=== PATIENT | female | born 2000 | race Caucasian/White ===

== ENCOUNTER 2025-03-11 05:18 | Inpatient (IN) ==
--- NOTE | 2025-03-11 07:22 | History & Physical Report ---
Date of Service March 11, 2025 Assessment & Plan (1) Irregular uterine contractions: Plan: Evaluate the patient for labor History of Present Illness Chief Complaint: Intrauterine 37 weeks 5 days gestation Contractions Primary Care Provider: Camden Patterson PA-C Patient is a 24-year-old 1 para 0 well dated with a first trimester ultrasound her due date is 11/24/2024 is complicated by seizure disorder gestational diabetes positive strep on multiple medications. Scheduled for induction at [facility] [address] on 03/20/2025. Patient was brought in by ambulance. Patient states she was having contractions. Patient felt she was unable to drive to [place]. She does not complain of any bleeding. No leakage of fluid. Was admitted placed on the monitor she had reactive NST with good [id number] variability and some spontaneous accelerations. She does not complain of any bleeding or leakage of fluid. Allergies Allergy/AdvReac Type Severity Reaction Status Date / Time Penicillins Allergy Intermediate Hives Verified 10/12/24 23:31 Home Medications Medication Instructions Recorded Confirmed Type escitalopram oxalate 20 mg tablet 20 mg PO DAILY 01/03/25 03/11/25 History (Lexapro) famotidine 20 mg tablet (Pepcid) 20 mg PO BID 01/03/25 03/11/25 History folic acid 1 mg tablet 1 mg PO DAILY 01/03/25 03/11/25 History lamotrigine 100 mg tablet 300 mg PO HS 01/03/25 03/11/25 History (Lamictal) lamotrigine 150 mg tablet 150 mg PO DAILY 01/03/25 03/11/25 History (Lamictal) pantoprazole 20 mg tablet,delayed 20 mg PO BID 01/03/25 03/11/25 History release (Protonix) vits no.124-ferrous fum 1 tab PO DAILY 01/03/25 03/11/25 History 27 mg iron-folic acid 800 mcg tablet ( Vitamin) albuterol sulfate 90 mcg/actuation 1 inh inhalation QID PRN Shortness 01/26/25 03/11/25 History aerosol inhaler (Ventolin HFA) Of Breath amitriptyline 10 mg tablet 10 mg PO HS 01/26/25 03/11/25 History aspirin 81 mg capsule 81 mg PO DAILY 01/26/25 03/11/25 History clotrimazole 1 % topical ointment 1 applic topical BID 01/26/25 03/11/25 History (Alevazol) doxylamine succinate 25 mg tablet 25 mg PO HS PRN Nausea And Vomiting 01/26/25 03/11/25 History (Unisom (doxylamine)) epinephrine 0.15 mg/0.3 mL 0.15 mg IM Q15M PRN Anaphylaxis 01/26/25 03/11/25 History injection,auto-injector fexofenadine 180 mg tablet 180 mg PO DAILY 01/26/25 03/11/25 History fluticasone propionate 115 2 puff inhalation BID 01/26/25 03/11/25 History mcg-salmeterol 21 mcg/actuation HFA inhaler (Advair HFA) magnesium oxide 400 mg PO DAILY 01/26/25 03/11/25 History ondansetron 4 mg disintegrating 4 mg PO Q8H PRN Nausea And Vomiting 01/26/25 03/11/25 History tablet pyridoxine (vitamin B6) 25 mg 25 mg PO HS PRN Nausea And Vomiting 01/26/25 03/11/25 History tablet (Vitamin B-6) docusate sodium 100 mg capsule 100 mg PO DAILY 02/25/25 03/11/25 History (Colace) Past Med/Surg History Problem List (Updated 03/11/25 @ 05:25 by Arline Stockton RN) Irregular uterine contractions No leakage of amniotic fluid into vagina Vaginal discharge during in third trimester Dehydration during Uterine contractions during Depression Asthma Anxiety HTN (hypertension), benign GERD (gastroesophageal reflux disease) Medical History (Updated 03/11/25 @ 05:25 by Arline Stockton RN) Gestational diabetes mellitus (GDM) diet controlled Bipolar 2 disorder Seizure states last had seizure on 03/08/25. follows neurology and takes lamictal. states was diagnosed with seizure disorder in 2019. states seizures are stress induced. Migraines Surgical History S/P cholecystectomy [place] teeth extracted Family History Grandmother (Maternal) Hypertension Heart disease High cholesterol Allergies Grandfather (Maternal) Heart disease Hypertension High cholesterol Allergies Grandmother (Paternal) High cholesterol Hypertension Heart disease Allergies Grandfather (Paternal) Hypertension Heart disease Allergies High cholesterol Social History (Updated 03/11/25 @ 05:27 by Arline Stockton RN) Smoking Status: Never smoker Second Hand Exposure: No; Do You Dip or Chew Tobacco: No; Hx Alcohol Use: No Hx Substance Use: No Preferred Language: Tajik Communication Ability: Effective Pipelaying Fitter Required: No Beliefs That Will Affect Care: Orthodox Orthodox Beliefs: Yarsanism marital status: marital status details: Gianni Lechuga (26) Current Living Situation: Spouse Current Living Situation Comment: , brother, brother in law, dogs current occupational status: unemployed Feels Safe at Home: Yes Safety Concerns: Feels Safe At This Time Diet: regular Assistive Devices: Glasses Physical Exam Physical Exam: Patient appeared to be well-developed well-nourished 24-year-old white female alert oriented x 3 and intermittent periods of distress due to contractions. Heart had a regular rhythm S1 and S2 were normal. Lungs are clear to auscultation percussion. Trachea was midline there is no cervical adenopathy abdomen was nontender. Contractions were palpable about every 5 to 6 minutes abdominal size was consistent with a term size fetus. There was no calf tenderness. Pelvic exam revealed a vertex presentation cervix was posterior 90% effaced soft 1.5 cm dilated. Membranes were intact. Results & Data Results & Data Vital Signs (Past 12 Hours) Vital Signs Temp Pulse BP 03/11/25 05:43 78 128/81 03/11/25 05:37 36.8 C Diagnostic Findings Reactive NST
[2025-03-11] MEDS ORDERED: VANCOMYCIN CONSULT ACTIVE PRN (08:50)
[2025-03-11] MEDS ORDERED: CALCIUM CARBONATE 500 MG CHEWABLE TAB PO PRN (08:50)
[2025-03-11] MEDS ORDERED: LIDOCAINE 1% LOCAL 20 ML VIAL INFIL PRN (08:50)
[2025-03-11] MEDS ORDERED: OXYTOCIN 30 UNITS/NSS 30 UNITS/500 ML BAG IV PRN (08:50)
[2025-03-11] MEDS ORDERED: PYRIDOXINE HCL 50 MG TAB PO PRN (08:52)
[2025-03-11] MEDS ORDERED: ONDANSETRON 4 MG OD TAB PO PRN (08:52)
[2025-03-11] MEDS ORDERED: ALBUTEROL HFA 8 GM INHALER INH PRN (08:52)
--- NOTE | 2025-03-11 08:53 | Obstetrical Progress Note ---
Date of Service March 11, 2025 Subjective Patient seen and examined. She is a 24-year-old G1, P0 at 37 and 5 weeks who came to labor ended with ambulance for painful contractions which started around 1 AM. Her cervix was 1 cm, 50%, -1 by nursing team and then Dr. Boss was called and and his exam was with more effacement about 80%. He thought she was in early labor and signed out to me. When I came to the room patient is on her side screaming crying with each contractions they are coming every 3 to 4 minutes. She denies leakage of fluid or vaginal bleeding. She reports good movements. She desires epidural for pain. Originally she was scheduled for induction of labor at 39 weeks at [facility] [place] because of history of seizure disorder but patient desires to stay here since she is very painful and desires epidural for pain. Her seizures are usually absence seizure's she states for about a minute and then recovers without any issues. She has been on Lamictal and dose has been increased by neurology. She has gestational diabetes, diet control, US done by [facility] on 02/24: Patient presented at 35w 2d for growth assessment. Normal growth with EFW 2699 g at 55%ile. Normal MADELYN at 13.7 cm. Cephalic presentation. Problems: 1. History of seizure disorder, on Lamictal, last seizure was in December of this year, does not lose her consciousness, 2. Obesity during , 3. GBS positive, Allergic to penicillin 4. GDM A1, diet-controlled, 5. Depression, on Lexapro and stable, I checked her cervix she is 2 cm now, 80%, tight bulging bag head is at -1 station. She is getting IV fluid bolus and labs plan to admit her, monitor, vancomycin for GBS and allergic to penicillin, recheck her cervix after she gets some rest, All questions were answered. Results & Data Vital Signs (Past 12 Hours) Vital Signs Temp Pulse Resp BP 03/11/25 07:59 81 125/75 03/11/25 07:29 86 140/94 03/11/25 07:16 22 03/11/25 07:16 37.0 C 03/11/25 05:43 78 128/81 03/11/25 05:37 36.8 C
[2025-03-11] MEDS ORDERED: EPINEPHrine INJ 1 MG/ML AMP IM PRN (09:00)
[2025-03-11] MEDS: LACTATED RINGER'S 1,000 ML IV PRN (09:00)
--- NOTE | 2025-03-11 09:16 | Anesthesiology Consultation ---
Date of Service March 11, 2025 Assessment & Plan ASA ASA2 Proposed Anesthesia Anesthesia Type: Labor Epidural Risk / Benefits Reviewed With: PT / POA / Parent / Guardian, Accepts Plan and Informed Consent Obtained History Height/Weight Height: 4 ft 10 in Weight: 85.275 kg Allergies Allergy/AdvReac Type Severity Reaction Status Date / Time Penicillins Allergy Intermediate Hives Verified 03/11/25 11:48 Medications Home Medications Medication Instructions Recorded Confirmed Last Taken escitalopram oxalate 20 mg tablet 20 mg PO DAILY 01/03/25 03/11/25 03/10/25 (Lexapro) famotidine 20 mg tablet (Pepcid) 20 mg PO BID 01/03/25 03/11/25 03/10/25 folic acid 1 mg tablet 1 mg PO DAILY 01/03/25 03/11/25 03/10/25 lamotrigine 100 mg tablet 300 mg PO HS 01/03/25 03/11/25 03/10/25 (Lamictal) lamotrigine 150 mg tablet 150 mg PO DAILY 01/03/25 03/11/25 03/10/25 (Lamictal) pantoprazole 20 mg tablet,delayed 20 mg PO BID 01/03/25 03/11/25 03/10/25 release (Protonix) vits no.124-ferrous fum 1 tab PO DAILY 01/03/25 03/11/25 03/10/25 27 mg iron-folic acid 800 mcg tablet ( Vitamin) albuterol sulfate 90 mcg/actuation 1 inh inhalation QID PRN Shortness 01/26/25 03/11/25 Unknown aerosol inhaler (Ventolin HFA) Of Breath amitriptyline 10 mg tablet 10 mg PO HS 01/26/25 03/11/25 03/10/25 aspirin 81 mg capsule 81 mg PO DAILY 01/26/25 03/11/25 03/10/25 clotrimazole 1 % topical ointment 1 applic topical BID 01/26/25 03/11/25 01/26/25 (Alevazol) doxylamine succinate 25 mg tablet 25 mg PO HS PRN Nausea And Vomiting 01/26/25 03/11/25 03/10/25 (Unisom (doxylamine)) epinephrine 0.15 mg/0.3 mL 0.15 mg IM Q15M PRN Anaphylaxis 01/26/25 03/11/25 Unknown injection,auto-injector fexofenadine 180 mg tablet 180 mg PO DAILY 01/26/25 03/11/25 03/10/25 fluticasone propionate 115 2 puff inhalation BID 01/26/25 03/11/25 01/19/25 mcg-salmeterol 21 mcg/actuation HFA inhaler (Advair HFA) magnesium oxide 400 mg PO DAILY 01/26/25 03/11/25 03/10/25 ondansetron 4 mg disintegrating 4 mg PO Q8H PRN Nausea And Vomiting 01/26/25 03/11/25 03/10/25 tablet pyridoxine (vitamin B6) 25 mg 25 mg PO HS PRN Nausea And Vomiting 01/26/25 03/11/25 03/10/25 tablet (Vitamin B-6) docusate sodium 100 mg capsule 100 mg PO DAILY 02/25/25 03/11/25 02/25/25 (Colace) Active Medications Generic Name Dose Route Start Last Admin Trade Name Kwasi PRN Reason Stop Dose Admin Docusate Sodium 100 mg 03/11/25 09:00 03/11/25 10:06 Docusate Sodium 100 Mg Cap PO 04/10/25 08:59 Not Given DAILY SCOOTER Escitalopram Oxalate 20 mg 03/11/25 09:00 03/11/25 10:53 Escitalopram Oxalate 20 Mg Tab PO 04/10/25 08:59 20 mg DAILY SCOOTER Administration Famotidine 20 mg 03/11/25 09:00 03/11/25 10:28 Famotidine 20 Mg Tab PO 04/10/25 08:59 20 mg BID SCOOTER Administration Fexofenadine HCl 180 mg 03/11/25 09:00 03/11/25 10:52 Fexofenadine Hcl 180 Mg Tab PO 04/10/25 08:59 180 mg DAILY SCOOTER Administration Fluticasone/Vilanterol 1 puffs 03/11/25 09:00 03/11/25 10:23 Fluticasone/Vilanterol 100/25mcg 14 Puffs/Inhaler INH 04/10/25 08:59 Not Given DAILY SCOOTER Folic Acid 1 mg 03/11/25 09:00 03/11/25 10:24 Folic Acid 1 Mg Tab PO 04/10/25 08:59 Not Given DAILY SCOOTER Vancomycin HCl 1,000 mg in 270 mls @ 200 mls/hr 03/11/25 09:30 03/11/25 10:01 Vancomycin Hcl / Nss IV 03/21/25 09:29 200 mls/hr Q12H PRN Administration GBS(+) Until Delivery Lactated Ringer's 1,000 mls @ 150 mls/hr 03/11/25 08:50 03/11/25 10:00 Lr IV 03/13/25 08:49 150 mls/hr .Q6H40M PRN Administration L&D Protocol Protocol Oxytocin 30 units in 500 mls @ 2 mls/hr 03/11/25 12:54 03/11/25 13:30 Pitocin 30 Units/Nss IV 03/13/25 12:53 0.12 units/hr .Q24H PRN 2 mls/hr Labor Induction/Augmentation Administration Protocol 0.12 UNITS/HR Lamotrigine 150 mg 03/11/25 10:30 03/11/25 10:28 Lamotrigine 100 Mg Tab PO 04/10/25 10:29 150 mg DAILY SCOOTER Administration Pantoprazole Sodium 20 mg 03/11/25 09:00 03/11/25 10:51 Pantoprazole 40 Mg Tab PO 04/10/25 08:59 20 mg BID SCOOTER Administration Prenat Multivit/[place]/Iron/Folic Ac 1 tab 03/11/25 09:00 03/11/25 10:24 Vitamin 1 Tab PO 04/10/25 08:59 Not Given DAILY SCOOTER Past Medical History Medical History Gestational diabetes mellitus (GDM) diet controlled Bipolar 2 disorder Seizure states last had seizure on 03/08/25. follows neurology and takes lamictal. states was diagnosed with seizure disorder in 2019. states seizures are stress induced. Migraines Exercise / Class Metabolic Activity II 4-5 Yardwork/Stairs/Walk up hill Past Family History Family History Grandmother (Maternal) Hypertension Heart disease High cholesterol Allergies Grandfather (Maternal) Heart disease Hypertension High cholesterol Allergies Grandmother (Paternal) High cholesterol Hypertension Heart disease Allergies Grandfather (Paternal) Hypertension Heart disease Allergies High cholesterol Past Surgical History Surgical History S/P cholecystectomy [place] teeth extracted Past Anesthesia History No Hx of Anesthesia Complications and No Family Hx of Anesthesia Complications History of PONV No Hx of PONV and No Hx of Motion Sickness Social History Smoking Status: Never smoker Do You Dip or Chew Tobacco: No Hx Alcohol Use: No Hx Substance Use: No substance use type: does not use Review of Systems denies fever/cough/ colds/ chest pain/ SOB/ FARIDA denies FARIDA Physical Exam Vital Signs Last Vital Signs Temp 36.9 C 03/11/25 11:00 Pulse 95 H 03/11/25 13:38 Resp 18 03/11/25 13:30 BP 131/80 03/11/25 13:28 Pulse Ox 100 03/11/25 13:38 ENMT Mouth: no TMJ abnormality and no dentition abnormality Thyromental Distance: > or= 3.5 Finger Breadths Mallampati Class: II Neck neck extension not limited Respiratory normal respiratory effort; no respiratory distress Auscultation: lungs clear to auscultation bilaterally Cardiovascular Rate/Rhythm: regular rate and regular rhythm Neurologic moves all extremities Psychiatric Orientation: alert and oriented x 3 Testing Laboratory Results 03/11/25 08:58 Blood Type AB Positive 03/11/25 08:58 Antibody Screen NEGATIVE 03/11/25 08:58 03/11/25 12:58 POC Glucose 124 H
[2025-03-11 09:18] LABS: Hematocrit (blood only) 32.1 % (37.0-47.0); Hemoglobin 11.5 g/dl (12.0-16.0); Mean Corpuscular Hemoglobin 32.6 pg (25.0-34.0); Mean Corpuscular Volume 90.9 fL (80.0-100.0); Platelet Count 173 K/uL (130-400); RDW Standard Deviation 46.5 fL (36.4-46.3); Red Blood Count 3.53 M/uL (4.20-5.40); White Blood Count 10.40 K/ul (4.8-10.8)
[2025-03-11] MEDS ORDERED: BUPIVACAINE 0.25% PF 30 ML VIAL EPI PRN (09:23)
[2025-03-11] MEDS ORDERED: NALBUPHINE HCL INJ 10 MG/ML AMP IV PRN (09:23)
[2025-03-11] MEDS ORDERED: diphenhydrAMINE 50 MG/ML VIAL IV PRN (09:23)
[2025-03-11] MEDS ORDERED: ROPIVACAINE 0.5% PF 5 MG/ML 20 ML VIAL EPI PRN (09:23)
[2025-03-11] MEDS ORDERED: PROMETHAZINE 6.25 MG/50.25 ML BAG IV PRN (09:23)
[2025-03-11] MEDS ORDERED: SODIUM CHLORIDE 0.9% PF INJ 10 ML VIAL EPI PRN (09:23)
[2025-03-11] MEDS ORDERED: LIDOCAINE 2% MPF LOCAL 5 ML VIAL EPI PRN (09:23)
[2025-03-11] MEDS ORDERED: NALOXONE HCL 1 MG in SODIUM CHLORIDE 0.9% 1,000 ML IV PRN (09:23)
[2025-03-11] MEDS ORDERED: NALOXONE HCL 0.4 MG/1 ML VIAL/CARP IV PRN (09:23)
[2025-03-11] MEDS: fentANYL 2 MCG/ML BUPIVacaine 0.125%-NSS 100ML BAG ONE ×2 (09:57→18:40)
[2025-03-11] MEDS: LIDOCAINE 2%/EPINEPHRINE 1:200,000 20 ML PF ONE ×2 (09:59→17:36)
[2025-03-11] MEDS: BUPIVACAINE 0.25% PF 30 ML VIAL ONE ×2 (09:59→17:36)
[2025-03-11] MEDS: VANCOMYCIN HCL / NSS 1,000 MG/270 ML BAG IV PRN (10:01)
[2025-03-11] MEDS: DOCUSATE SODIUM 100 MG CAP PO SCH (10:06)
[2025-03-11] MEDS ORDERED: Nursing to Pharmacy Communication SCH (10:15)
[2025-03-11] MEDS: FLUTICASONE/VILANTEROL 100/25MCG 14 PUFFS/INHALER INH SCH (10:23)
[2025-03-11] MEDS: PRENATAL VITAMIN 1 TAB PO SCH (10:24)
[2025-03-11] MEDS: FOLIC ACID 1 MG TAB PO SCH (10:24)
[2025-03-11] MEDS: lamoTRIgine 100 MG TAB PO SCH (10:28)
[2025-03-11] MEDS: FAMOTIDINE 20 MG TAB PO SCH (10:28)
[2025-03-11] MEDS: FEXOFENADINE HCL 180 MG TAB PO SCH (10:52)
[2025-03-11] MEDS: ESCITALOPRAM OXALATE 20 MG TAB PO SCH (10:53)
[2025-03-11] MEDS: LIDOCAINE 2%/EPINEPHRINE 1:200,000 20 ML PF EPI STA (12:40)
[2025-03-11] MEDS: SODIUM CHLORIDE 0.9% PF INJ 10 ML VIAL ONE ×2 (12:40→18:40)
[2025-03-11] MEDS: BUPIVACAINE 0.25% PF 30 ML VIAL EPI STA (12:40)
[2025-03-11] MEDS: SODIUM CHLORIDE 0.9% PF INJ 10 ML VIAL EPI STA (12:40)
--- NOTE | 2025-03-11 13:12 | Obstetrical Progress Note ---
Date of Service March 11, 2025 Assessment & Plan Admission and Anticipated Discharge Date Admission Date: March 11, 2025 Subjective Patient is reevaluated. She feels much better minimal pain. Received epidural and which is working very well. Vital signs stable afebrile, heart rate category 1, First dose of vancomycin was given, Cervix is 4 cm dilated, 90% effaced, large bulging bag, around abundant clear fluid was obtained, Contractions spaced out, Continue to monitor closely and augment with oxytocin per protocol. Results & Data Vital Signs (Past 12 Hours) Vital Signs Temp Pulse Resp BP Pulse Ox 03/11/25 13:08 101 H 100 03/11/25 13:03 86 99 03/11/25 12:59 90 99/72 L 03/11/25 12:58 88 94 03/11/25 12:55 95 H 90 03/11/25 12:53 94 H 100 03/11/25 12:48 84 100 03/11/25 12:44 85 92 03/11/25 12:43 100 03/11/25 12:43 86 03/11/25 12:43 84 134/77 03/11/25 12:38 89 100 03/11/25 12:33 93 H 100 03/11/25 12:29 83 130/71 03/11/25 12:28 84 100 03/11/25 12:23 92 H 100 03/11/25 12:21 90 94 03/11/25 12:18 76 100 03/11/25 12:13 82 115/74 100 03/11/25 12:08 79 100 03/11/25 12:03 90 95 03/11/25 12:00 83 149/67 H 03/11/25 11:58 81 100 03/11/25 11:53 90 98 03/11/25 11:48 86 100 03/11/25 11:45 75 113/65 03/11/25 11:43 90 100 03/11/25 11:38 83 99 03/11/25 11:33 83 100 03/11/25 11:29 77 109/73 03/11/25 11:28 80 100 03/11/25 11:23 80 100 03/11/25 11:19 89 94 03/11/25 11:18 85 97 03/11/25 11:15 82 119/86 03/11/25 11:13 92 H 88 L 03/11/25 11:08 80 100 03/11/25 11:03 91 H 100 03/11/25 11:00 20 03/11/25 11:00 36.9 C 20 03/11/25 10:58 76 100 03/11/25 10:57 100 H 138/61 03/11/25 10:53 104 H 100 03/11/25 10:52 85 116/67 03/11/25 10:48 90 98 03/11/25 10:47 86 118/68 03/11/25 10:43 90 100 03/11/25 10:42 101 H 116/73 03/11/25 10:39 88 115/71 03/11/25 10:38 84 100 03/11/25 10:33 99 H 100 03/11/25 10:32 93 H 135/75 03/11/25 10:31 104 H 91 03/11/25 10:30 18 03/11/25 10:30 18 03/11/25 10:28 90 100 03/11/25 10:26 82 132/77 03/11/25 10:24 97 H 139/78 03/11/25 10:23 95 H 100 03/11/25 10:22 95 H 135/76 03/11/25 10:20 100 H 131/75 03/11/25 10:18 100 03/11/25 10:18 94 H 03/11/25 10:18 93 H 130/74 03/11/25 10:16 100 H 125/74 03/11/25 10:14 103 H 121/74 03/11/25 10:13 95 H 100 03/11/25 10:12 102 H 129/76 03/11/25 10:11 94 H 127/78 03/11/25 10:08 95 H 119/57 L 100 03/11/25 10:06 88 121/59 L 03/11/25 10:04 94 H 124/72 03/11/25 10:03 95 H 99 03/11/25 10:02 93 H 123/68 03/11/25 10:00 103 H 20 138/86 03/11/25 09:58 86 126/76 99 03/11/25 09:56 85 127/69 03/11/25 09:54 88 125/74 03/11/25 09:53 86 99 03/11/25 09:52 81 136/84 03/11/25 09:50 86 137/83 03/11/25 09:48 94 H 99 03/11/25 09:43 90 99 03/11/25 09:38 79 97 03/11/25 09:33 100 H 100 03/11/25 09:28 96 H 99 03/11/25 09:00 18 03/11/25 09:00 18 03/11/25 07:59 81 125/75 03/11/25 07:29 86 140/94 03/11/25 07:16 22 03/11/25 07:16 37.0 C 22 03/11/25 05:43 78 128/81 03/11/25 05:37 36.8 C
[2025-03-11] MEDS: OXYTOCIN 30 UNITS/NSS 30 UNITS/500 ML BAG IV PRN (13:30)
[2025-03-11] MEDS: fentANYL 2 MCG/ML BUPIVacaine 0.125%-NSS 100ML BAG EPI PRN (16:21)
--- NOTE | 2025-03-11 17:16 | Obstetrical Progress Note ---
Date of Service March 11, 2025 Assessment & Plan Admission and Anticipated Discharge Date Admission Date: March 11, 2025 Subjective Patient feels pressure and getting more painful. She pushed pain button but has not helped. Vital signs stable afebrile, heart rate category 1, Cervix is 45 cm, 80%, head is -120 station with contraction, IUPC is placed to adjust the dose of Pitocin with better, Continue monitor closely, Will contact anesthesiology for pain control Results & Data Vital Signs (Past 12 Hours) Vital Signs Temp Pulse Resp BP Pulse Ox 03/11/25 17:13 99 H 100 03/11/25 17:10 103 H 94 03/11/25 17:08 102 H 100 03/11/25 17:03 94 H 100 03/11/25 16:58 100 03/11/25 16:58 95 H 03/11/25 16:58 89 149/93 H 03/11/25 16:53 91 H 100 03/11/25 16:48 96 H 100 03/11/25 16:43 100 03/11/25 16:43 94 H 03/11/25 16:43 101 H 136/92 03/11/25 16:42 97 H 91 03/11/25 16:38 90 100 03/11/25 16:33 89 100 03/11/25 16:29 95 H 139/89 03/11/25 16:28 93 H 100 03/11/25 16:23 94 H 99 03/11/25 16:18 90 100 03/11/25 16:14 96 H 135/82 03/11/25 16:13 94 H 100 03/11/25 16:11 91 H 92 03/11/25 16:08 91 H 100 03/11/25 16:03 91 H 99 03/11/25 15:58 88 100 03/11/25 15:57 86 136/82 03/11/25 15:53 91 H 100 03/11/25 15:48 89 100 03/11/25 15:44 85 131/81 03/11/25 15:43 80 100 03/11/25 15:38 81 100 03/11/25 15:33 83 99 03/11/25 15:30 16 03/11/25 15:30 16 03/11/25 15:29 96 H 139/93 03/11/25 15:28 94 H 100 03/11/25 15:26 89 91 03/11/25 15:23 82 100 03/11/25 15:18 85 100 03/11/25 15:15 81 131/62 03/11/25 15:13 83 100 03/11/25 15:10 36.8 C 03/11/25 15:08 81 100 03/11/25 15:03 85 100 03/11/25 15:00 18 03/11/25 15:00 36.8 C 18 03/11/25 14:58 83 134/73 100 03/11/25 14:53 84 100 03/11/25 14:52 84 93 03/11/25 14:48 86 100 03/11/25 14:44 86 130/65 03/11/25 14:43 91 H 100 03/11/25 14:38 87 98 03/11/25 14:33 85 100 03/11/25 14:31 89 91 03/11/25 14:30 16 03/11/25 14:30 16 03/11/25 14:28 84 132/66 100 03/11/25 14:23 81 100 03/11/25 14:18 84 94 03/11/25 14:13 100 03/11/25 14:13 75 03/11/25 14:13 76 132/72 03/11/25 14:08 102 H 90 03/11/25 14:03 92 H 100 03/11/25 14:00 16 03/11/25 14:00 16 03/11/25 13:58 100 03/11/25 13:58 88 03/11/25 13:58 89 139/86 03/11/25 13:53 95 H 99 03/11/25 13:48 88 100 03/11/25 13:43 92 H 146/88 H 100 03/11/25 13:38 95 H 100 03/11/25 13:33 92 H 100 03/11/25 13:30 18 03/11/25 13:30 18 03/11/25 13:28 100 03/11/25 13:28 92 H 03/11/25 13:28 85 131/80 03/11/25 13:26 81 90 03/11/25 13:23 96 H 100 03/11/25 13:18 89 100 03/11/25 13:14 93 H 140/84 03/11/25 13:13 100 H 100 03/11/25 13:10 98 H 93 03/11/25 13:08 101 H 100 03/11/25 13:03 86 99 03/11/25 13:00 18 03/11/25 13:00 18 03/11/25 12:59 90 99/72 L 03/11/25 12:58 88 94 03/11/25 12:55 95 H 90 03/11/25 12:53 94 H 100 03/11/25 12:48 84 100 03/11/25 12:44 85 92 03/11/25 12:43 100 03/11/25 12:43 86 03/11/25 12:43 84 134/77 03/11/25 12:38 89 100 03/11/25 12:33 93 H 100 03/11/25 12:30 16 03/11/25 12:30 16 03/11/25 12:29 83 130/71 03/11/25 12:28 84 100 03/11/25 12:23 92 H 100 03/11/25 12:21 90 94 03/11/25 12:18 76 100 03/11/25 12:13 82 115/74 100 03/11/25 12:08 79 100 03/11/25 12:03 90 95 03/11/25 12:00 83 20 149/67 H 03/11/25 11:58 81 100 03/11/25 11:53 90 98 03/11/25 11:48 86 100 03/11/25 11:45 75 113/65 03/11/25 11:43 90 100 03/11/25 11:38 83 99 03/11/25 11:33 83 100 03/11/25 11:30 18 03/11/25 11:30 18 03/11/25 11:29 77 109/73 03/11/25 11:28 80 100 03/11/25 11:23 80 100 03/11/25 11:19 89 94 03/11/25 11:18 85 97 03/11/25 11:15 82 119/86 03/11/25 11:13 92 H 88 L 03/11/25 11:08 80 100 03/11/25 11:03 91 H 100 03/11/25 11:00 20 03/11/25 11:00 36.9 C 20 03/11/25 10:58 76 100 03/11/25 10:57 100 H 138/61 03/11/25 10:53 104 H 100 03/11/25 10:52 85 116/67 03/11/25 10:48 90 98 03/11/25 10:47 86 118/68 03/11/25 10:43 90 100 03/11/25 10:42 101 H 116/73 03/11/25 10:39 88 115/71 03/11/25 10:38 84 100 03/11/25 10:33 99 H 100 03/11/25 10:32 93 H 135/75 03/11/25 10:31 104 H 91 03/11/25 10:30 18 03/11/25 10:30 18 03/11/25 10:28 90 100 03/11/25 10:26 82 132/77 03/11/25 10:24 97 H 139/78 03/11/25 10:23 95 H 100 03/11/25 10:22 95 H 135/76 03/11/25 10:20 100 H 131/75 03/11/25 10:18 100 03/11/25 10:18 94 H 03/11/25 10:18 93 H 130/74 03/11/25 10:16 100 H 125/74 03/11/25 10:14 103 H 121/74 03/11/25 10:13 95 H 100 03/11/25 10:12 102 H 129/76 03/11/25 10:11 94 H 127/78 03/11/25 10:08 95 H 119/57 L 100 03/11/25 10:06 88 121/59 L 03/11/25 10:04 94 H 124/72 03/11/25 10:03 95 H 99 03/11/25 10:02 93 H 123/68 03/11/25 10:00 103 H 20 138/86 03/11/25 09:58 86 126/76 99 03/11/25 09:56 85 127/69 03/11/25 09:54 88 125/74 03/11/25 09:53 86 99 03/11/25 09:52 81 136/84 03/11/25 09:50 86 137/83 03/11/25 09:48 94 H 99 03/11/25 09:43 90 99 03/11/25 09:38 79 97 03/11/25 09:33 100 H 100 03/11/25 09:28 96 H 99 03/11/25 09:00 18 03/11/25 09:00 18 03/11/25 07:59 81 125/75 03/11/25 07:29 86 140/94 03/11/25 07:16 22 03/11/25 07:16 37.0 C 22 03/11/25 05:43 78 128/81 03/11/25 05:37 36.8 C
--- NOTE | 2025-03-11 18:12 | Anesthesia Procedure Note ---
Date of Service March 11, 2025 Anesthesia Epidural Re-Dose Vital Signs Temp Pulse Resp BP Pulse Ox 36.8 C 94 H 16 143/87 H 100 03/11/25 15:10 03/11/25 18:03 03/11/25 15:30 03/11/25 17:58 03/11/25 18:03 Notes Pain Intensity: 10 Dilatation (cm): 4.5 Effacement (%): 80 After Epidural Re-Dose Mental Status: alert / awake / arousable Pain: see Notes below Airway Patency, RR, SpO2: stable & adequate BP & HR: stable & adequate Additional Notes: asked to reevaluate the patient. patient has numbness but is reporting break through pain in vaginal and back area. I am concerned that she is remote from delivery with ineffective pain control. I decided to replace the epidural. previous one was removed and the interspace above was numbed with 1% lido. I then advanced a touey needle to MIN with air at 5 cm. Easy catheter thread. no blood aspirated. 1% lido with epi 4cc test dose. negative IV. catheter secured and patient bolused with 100 mcg of fentanyl and 3cc of .25% bupivicaine. pt vaginal pain is gone and back pain has improved.
--- NOTE | 2025-03-11 18:58 | Obstetrical Progress Note ---
Date of Service March 11, 2025 Assessment & Plan Admission and Anticipated Discharge Date Admission Date: March 11, 2025 Subjective BP's elevated Low UOP No BECERRA/ Change in vision/N&V Epidural was replaced, now comfortable and wants to sleep VE: 4-5 cm/ 0 station, slightly lower but no change in dilatation Bed side US OP, Bladder empty Plan to start PO labetalol, labs, adjust the dose of Oxytocin Continue to monitor closely Results & Data Vital Signs (Past 12 Hours) Vital Signs Temp Pulse Resp BP Pulse Ox 03/11/25 18:53 89 100 03/11/25 18:48 96 H 100 03/11/25 18:43 100 03/11/25 18:43 92 H 03/11/25 18:43 91 H 144/91 H 03/11/25 18:38 94 H 100 03/11/25 18:34 96 H 150/95 H 03/11/25 18:33 97 H 100 03/11/25 18:28 88 154/97 H 100 03/11/25 18:24 87 148/96 H 03/11/25 18:23 93 H 100 03/11/25 18:18 88 100 03/11/25 18:16 89 146/98 H 03/11/25 18:14 93 H 142/101 H 03/11/25 18:13 87 100 03/11/25 18:08 91 H 100 03/11/25 18:03 94 H 100 03/11/25 17:58 91 H 143/87 H 100 03/11/25 17:53 88 100 03/11/25 17:48 94 H 100 03/11/25 17:43 100 03/11/25 17:43 85 03/11/25 17:43 81 137/84 03/11/25 17:38 100 03/11/25 17:38 90 03/11/25 17:38 90 139/84 03/11/25 17:35 94 H 147/91 H 03/11/25 17:33 93 H 100 03/11/25 17:32 91 H 144/91 H 03/11/25 17:30 97 H 153/102 H 03/11/25 17:29 107 H 140/92 03/11/25 17:28 106 H 100 03/11/25 17:23 104 H 100 03/11/25 17:18 104 H 96 03/11/25 17:15 99 H 138/99 03/11/25 17:13 99 H 100 03/11/25 17:10 103 H 94 03/11/25 17:08 102 H 100 03/11/25 17:03 94 H 100 03/11/25 16:58 100 03/11/25 16:58 95 H 03/11/25 16:58 89 149/93 H 03/11/25 16:53 91 H 100 03/11/25 16:48 96 H 100 03/11/25 16:43 100 03/11/25 16:43 94 H 03/11/25 16:43 101 H 136/92 03/11/25 16:42 97 H 91 03/11/25 16:38 90 100 03/11/25 16:33 89 100 03/11/25 16:29 95 H 139/89 03/11/25 16:28 93 H 100 03/11/25 16:23 94 H 99 03/11/25 16:18 90 100 03/11/25 16:14 96 H 135/82 03/11/25 16:13 94 H 100 03/11/25 16:11 91 H 92 03/11/25 16:08 91 H 100 03/11/25 16:03 91 H 99 03/11/25 16:00 18 03/11/25 16:00 18 03/11/25 15:58 88 100 03/11/25 15:57 86 136/82 03/11/25 15:53 91 H 100 03/11/25 15:48 89 100 03/11/25 15:44 85 131/81 03/11/25 15:43 80 100 03/11/25 15:38 81 100 03/11/25 15:33 83 99 03/11/25 15:30 16 03/11/25 15:30 16 03/11/25 15:29 96 H 139/93 03/11/25 15:28 94 H 100 03/11/25 15:26 89 91 03/11/25 15:23 82 100 03/11/25 15:18 85 100 03/11/25 15:15 81 131/62 03/11/25 15:13 83 100 03/11/25 15:10 36.8 C 03/11/25 15:08 81 100 03/11/25 15:03 85 100 03/11/25 15:00 18 03/11/25 15:00 36.8 C 18 03/11/25 14:58 83 134/73 100 03/11/25 14:53 84 100 03/11/25 14:52 84 93 03/11/25 14:48 86 100 03/11/25 14:44 86 130/65 03/11/25 14:43 91 H 100 03/11/25 14:38 87 98 03/11/25 14:33 85 100 03/11/25 14:31 89 91 03/11/25 14:30 16 03/11/25 14:30 16 03/11/25 14:28 84 132/66 100 03/11/25 14:23 81 100 03/11/25 14:18 84 94 03/11/25 14:13 100 03/11/25 14:13 75 03/11/25 14:13 76 132/72 03/11/25 14:08 102 H 90 03/11/25 14:03 92 H 100 03/11/25 14:00 16 03/11/25 14:00 16 03/11/25 13:58 100 03/11/25 13:58 88 03/11/25 13:58 89 139/86 03/11/25 13:53 95 H 99 03/11/25 13:48 88 100 03/11/25 13:43 92 H 146/88 H 100 03/11/25 13:38 95 H 100 03/11/25 13:33 92 H 100 03/11/25 13:30 18 03/11/25 13:30 18 03/11/25 13:28 100 03/11/25 13:28 92 H 03/11/25 13:28 85 131/80 03/11/25 13:26 81 90 03/11/25 13:23 96 H 100 03/11/25 13:18 89 100 03/11/25 13:14 93 H 140/84 03/11/25 13:13 100 H 100 03/11/25 13:10 98 H 93 03/11/25 13:08 101 H 100 03/11/25 13:03 86 99 03/11/25 13:00 18 03/11/25 13:00 18 03/11/25 12:59 90 99/72 L 03/11/25 12:58 88 94 03/11/25 12:55 95 H 90 03/11/25 12:53 94 H 100 03/11/25 12:48 84 100 03/11/25 12:44 85 92 03/11/25 12:43 100 03/11/25 12:43 86 03/11/25 12:43 84 134/77 03/11/25 12:38 89 100 03/11/25 12:33 93 H 100 03/11/25 12:30 16 03/11/25 12:30 16 03/11/25 12:29 83 130/71 03/11/25 12:28 84 100 03/11/25 12:23 92 H 100 03/11/25 12:21 90 94 03/11/25 12:18 76 100 03/11/25 12:13 82 115/74 100 03/11/25 12:08 79 100 03/11/25 12:03 90 95 03/11/25 12:00 83 20 149/67 H 03/11/25 11:58 81 100 03/11/25 11:53 90 98 03/11/25 11:48 86 100 03/11/25 11:45 75 113/65 03/11/25 11:43 90 100 03/11/25 11:38 83 99 03/11/25 11:33 83 100 03/11/25 11:30 18 03/11/25 11:30 18 03/11/25 11:29 77 109/73 03/11/25 11:28 80 100 03/11/25 11:23 80 100 03/11/25 11:19 89 94 03/11/25 11:18 85 97 03/11/25 11:15 82 119/86 03/11/25 11:13 92 H 88 L 03/11/25 11:08 80 100 03/11/25 11:03 91 H 100 03/11/25 11:00 20 03/11/25 11:00 36.9 C 20 03/11/25 10:58 76 100 03/11/25 10:57 100 H 138/61 03/11/25 10:53 104 H 100 03/11/25 10:52 85 116/67 03/11/25 10:48 90 98 03/11/25 10:47 86 118/68 03/11/25 10:43 90 100 03/11/25 10:42 101 H 116/73 03/11/25 10:39 88 115/71 03/11/25 10:38 84 100 03/11/25 10:33 99 H 100 03/11/25 10:32 93 H 135/75 03/11/25 10:31 104 H 91 03/11/25 10:30 18 03/11/25 10:30 18 03/11/25 10:28 90 100 03/11/25 10:26 82 132/77 03/11/25 10:24 97 H 139/78 03/11/25 10:23 95 H 100 03/11/25 10:22 95 H 135/76 03/11/25 10:20 100 H 131/75 03/11/25 10:18 100 03/11/25 10:18 94 H 03/11/25 10:18 93 H 130/74 03/11/25 10:16 100 H 125/74 03/11/25 10:14 103 H 121/74 03/11/25 10:13 95 H 100 03/11/25 10:12 102 H 129/76 03/11/25 10:11 94 H 127/78 03/11/25 10:08 95 H 119/57 L 100 03/11/25 10:06 88 121/59 L 03/11/25 10:04 94 H 124/72 03/11/25 10:03 95 H 99 03/11/25 10:02 93 H 123/68 03/11/25 10:00 103 H 20 138/86 03/11/25 09:58 86 126/76 99 03/11/25 09:56 85 127/69 03/11/25 09:54 88 125/74 03/11/25 09:53 86 99 03/11/25 09:52 81 136/84 03/11/25 09:50 86 137/83 03/11/25 09:48 94 H 99 03/11/25 09:43 90 99 03/11/25 09:38 79 97 03/11/25 09:33 100 H 100 03/11/25 09:28 96 H 99 03/11/25 09:00 18 03/11/25 09:00 18 03/11/25 07:59 81 125/75 03/11/25 07:29 86 140/94 03/11/25 07:16 22 03/11/25 07:16 37.0 C 22
[2025-03-11] MEDS: LABETALOL HCL 100 MG TAB PO ONE (19:27)
[2025-03-11 19:39] LABS: Hematocrit (blood only) 32.7 % (37.0-47.0); Hemoglobin 11.6 g/dl (12.0-16.0); Immature Granulocytes # (auto) 0.07 K/uL (0.01-0.20); Immature Granulocytes % (auto) 0.6 %; Mean Corpuscular Hemoglobin 33.0 pg (25.0-34.0); Mean Corpuscular Volume 92.9 fL (80.0-100.0); Platelet Count 167 K/uL (130-400); RDW Standard Deviation 48.0 fL (36.4-46.3); Red Blood Count 3.52 M/uL (4.20-5.40); White Blood Count 12.66 K/ul (4.8-10.8)
[2025-03-11 19:59] LABS: Alanine Aminotransferase 12.0 U/L (7-52); Albumin Globulin Ratio 1.1 (0.9-2); Alkaline Phosphatase 158.0 U/L (34-104); Anion Gap 11.0 (3-11); Bilirubin,Total 0.4 mg/dl (0.2-1.0); Blood Urea Nitrogen 14.0 mg/dl (6-23); Calcium 8.5 mg/dl (8.6-10.3); Carbon Dioxide 20.0 mmol/L (21-32); Chloride 105.0 mmol/L (98-107); Creatinine Clr Calc Pharmacy 86.2 ml/min; Globulin 3.0 gm/dl (2.5-4.0); Glucose 74.0 mg/dl (70-99(Fasting)); Potassium 4.0 mmol/L (3.5-5.1); Sodium 136.0 mmol/L (136-145); Total Protein 6.4 gm/dl (6.0-8.3)
--- NOTE | 2025-03-11 21:23 | Obstetrical Progress Note ---
Date of Service March 11, 2025 Assessment & Plan Admission and Anticipated Discharge Date Admission Date: March 11, 2025 Subjective Patient is reevaluated. She still has pain and pressure unable to sleep. Blood pressures stable, no severe range readings labs normal except slightly increased creatinine, unable to send urine for PC ratio due to no urine for 2 hours now started to have small amount of dark bloody urine. Cervix is unchanged, is 4.-5 cm, 80% effaced, head is still 0 station called, still direct OP. heart rate 140s with decreased variability for the last half an hour or so, brief variable decells with quick recovery, scalp stimulation with 10 bpm increased but does not meet criteria for acceleration, Pitocin has been at 20 milliunits/min, Discussed the findings, arrest of dilatation active phase of labor, heart rate category 2, oligoanuria, recommended primary delivery patient agrees with plan, understand risks and benefits of . Patient understands C section is a major surgery, with risks including but not limited to bleeding , infection, injury to surrounding organs like bowels, bladder, ureters, adhesions, scarring, wound infection, blood cloths in legs/ lungs, longer recovery. All questions were answered. She signed an informed consent. Results & Data Vital Signs (Past 12 Hours) Vital Signs Temp Pulse Resp BP Pulse Ox 03/11/25 21:14 100 03/11/25 21:14 96 H 03/11/25 21:14 96 H 139/69 03/11/25 21:09 103 H 100 03/11/25 21:04 108 H 100 03/11/25 20:59 97 H 100 03/11/25 20:58 103 H 148/82 H 03/11/25 20:54 91 H 100 03/11/25 20:49 94 H 100 03/11/25 20:44 99 03/11/25 20:44 93 H 03/11/25 20:44 92 H 94 03/11/25 20:43 90 145/86 H 03/11/25 20:39 101 H 97 03/11/25 20:38 97 H 148/86 H 03/11/25 20:34 109 H 100 03/11/25 20:33 109 H 168/77 H 86 L 03/11/25 20:29 103 H 161/100 H 100 03/11/25 20:24 104 H 100 03/11/25 20:19 98 H 100 03/11/25 20:14 100 H 100 03/11/25 20:13 100 H 144/93 H 03/11/25 20:09 96 H 100 03/11/25 20:04 95 H 100 03/11/25 20:00 36.7 C 03/11/25 19:59 101 H 100 03/11/25 19:58 96 H 143/97 H 03/11/25 19:54 99 03/11/25 19:54 93 H 03/11/25 19:54 93 H 94 03/11/25 19:49 100 03/11/25 19:49 87 03/11/25 19:49 91 H 90 03/11/25 19:44 93 H 135/87 100 03/11/25 19:39 89 100 03/11/25 19:34 94 H 100 03/11/25 19:29 93 H 100 03/11/25 19:24 92 H 100 03/11/25 19:21 88 134/79 03/11/25 19:19 88 94 03/11/25 19:18 89 89 L 03/11/25 19:13 92 H 100 03/11/25 19:08 88 100 03/11/25 19:03 86 100 03/11/25 18:58 93 H 123/79 100 03/11/25 18:53 89 100 03/11/25 18:48 96 H 100 03/11/25 18:43 100 03/11/25 18:43 92 H 03/11/25 18:43 91 H 144/91 H 03/11/25 18:38 94 H 100 03/11/25 18:34 96 H 150/95 H 03/11/25 18:33 97 H 100 03/11/25 18:30 20 03/11/25 18:30 20 03/11/25 18:28 88 154/97 H 100 03/11/25 18:24 87 148/96 H 03/11/25 18:23 93 H 100 03/11/25 18:18 88 100 03/11/25 18:16 89 146/98 H 03/11/25 18:14 93 H 142/101 H 03/11/25 18:13 87 100 03/11/25 18:08 91 H 100 03/11/25 18:03 94 H 100 03/11/25 18:00 20 03/11/25 18:00 20 03/11/25 17:58 91 H 143/87 H 100 03/11/25 17:53 88 100 03/11/25 17:48 94 H 100 03/11/25 17:43 100 03/11/25 17:43 85 03/11/25 17:43 81 137/84 03/11/25 17:38 100 03/11/25 17:38 90 03/11/25 17:38 90 139/84 03/11/25 17:35 94 H 147/91 H 03/11/25 17:33 93 H 100 03/11/25 17:32 91 H 144/91 H 03/11/25 17:30 97 H 153/102 H 03/11/25 17:29 107 H 140/92 03/11/25 17:28 106 H 100 03/11/25 17:23 104 H 100 03/11/25 17:18 104 H 96 03/11/25 17:15 99 H 138/99 03/11/25 17:13 99 H 100 03/11/25 17:10 103 H 94 03/11/25 17:08 102 H 100 03/11/25 17:03 94 H 100 03/11/25 17:01 03/11/25 17:01 36.9 C 22 03/11/25 16:58 100 03/11/25 16:58 95 H 03/11/25 16:58 89 149/93 H 03/11/25 16:53 91 H 100 03/11/25 16:48 96 H 100 03/11/25 16:43 100 03/11/25 16:43 94 H 03/11/25 16:43 101 H 136/92 03/11/25 16:42 97 H 91 03/11/25 16:38 90 100 03/11/25 16:33 89 100 03/11/25 16:30 18 03/11/25 16:30 18 03/11/25 16:29 95 H 139/89 03/11/25 16:28 93 H 100 03/11/25 16:23 94 H 99 03/11/25 16:18 90 100 03/11/25 16:14 96 H 135/82 03/11/25 16:13 94 H 100 03/11/25 16:11 91 H 92 03/11/25 16:08 91 H 100 03/11/25 16:03 91 H 99 03/11/25 16:00 18 03/11/25 16:00 18 03/11/25 15:58 88 100 03/11/25 15:57 86 136/82 03/11/25 15:53 91 H 100 03/11/25 15:48 89 100 03/11/25 15:44 85 131/81 03/11/25 15:43 80 100 03/11/25 15:38 81 100 03/11/25 15:33 83 99 03/11/25 15:30 16 03/11/25 15:30 16 03/11/25 15:29 96 H 139/93 03/11/25 15:28 94 H 100 03/11/25 15:26 89 91 03/11/25 15:23 82 100 03/11/25 15:18 85 100 03/11/25 15:15 81 131/62 03/11/25 15:13 83 100 03/11/25 15:10 36.8 C 03/11/25 15:08 81 100 03/11/25 15:03 85 100 03/11/25 15:00 18 03/11/25 15:00 36.8 C 18 03/11/25 14:58 83 134/73 100 03/11/25 14:53 84 100 03/11/25 14:52 84 93 03/11/25 14:48 86 100 03/11/25 14:44 86 130/65 03/11/25 14:43 91 H 100 03/11/25 14:38 87 98 03/11/25 14:33 85 100 03/11/25 14:31 89 91 03/11/25 14:30 16 03/11/25 14:30 16 03/11/25 14:28 84 132/66 100 03/11/25 14:23 81 100 03/11/25 14:18 84 94 03/11/25 14:13 100 03/11/25 14:13 75 03/11/25 14:13 76 132/72 03/11/25 14:08 102 H 90 03/11/25 14:03 92 H 100 03/11/25 14:00 16 03/11/25 14:00 16 03/11/25 13:58 100 03/11/25 13:58 88 03/11/25 13:58 89 139/86 03/11/25 13:53 95 H 99 03/11/25 13:48 88 100 03/11/25 13:43 92 H 146/88 H 100 03/11/25 13:38 95 H 100 03/11/25 13:33 92 H 100 03/11/25 13:30 18 03/11/25 13:30 18 03/11/25 13:28 100 03/11/25 13:28 92 H 03/11/25 13:28 85 131/80 03/11/25 13:26 81 90 03/11/25 13:23 96 H 100 03/11/25 13:18 89 100 03/11/25 13:14 93 H 140/84 03/11/25 13:13 100 H 100 03/11/25 13:10 98 H 93 03/11/25 13:08 101 H 100 03/11/25 13:03 86 99 03/11/25 13:00 18 03/11/25 13:00 18 03/11/25 12:59 90 99/72 L 03/11/25 12:58 88 94 03/11/25 12:55 95 H 90 03/11/25 12:53 94 H 100 03/11/25 12:48 84 100 03/11/25 12:44 85 92 03/11/25 12:43 100 03/11/25 12:43 86 03/11/25 12:43 84 134/77 03/11/25 12:38 89 100 03/11/25 12:33 93 H 100 03/11/25 12:30 16 03/11/25 12:30 16 03/11/25 12:29 83 130/71 03/11/25 12:28 84 100 03/11/25 12:23 92 H 100 03/11/25 12:21 90 94 03/11/25 12:18 76 100 03/11/25 12:13 82 115/74 100 03/11/25 12:08 79 100 03/11/25 12:03 90 95 03/11/25 12:00 83 20 149/67 H 03/11/25 11:58 81 100 03/11/25 11:53 90 98 03/11/25 11:48 86 100 03/11/25 11:45 75 113/65 03/11/25 11:43 90 100 03/11/25 11:38 83 99 03/11/25 11:33 83 100 03/11/25 11:30 18 03/11/25 11:30 18 03/11/25 11:29 77 109/73 03/11/25 11:28 80 100 03/11/25 11:23 80 100 03/11/25 11:19 89 94 03/11/25 11:18 85 97 03/11/25 11:15 82 119/86 03/11/25 11:13 92 H 88 L 03/11/25 11:08 80 100 03/11/25 11:03 91 H 100 03/11/25 11:00 20 03/11/25 11:00 36.9 C 20 03/11/25 10:58 76 100 03/11/25 10:57 100 H 138/61 03/11/25 10:53 104 H 100 03/11/25 10:52 85 116/67 03/11/25 10:48 90 98 03/11/25 10:47 86 118/68 03/11/25 10:43 90 100 03/11/25 10:42 101 H 116/73 03/11/25 10:39 88 115/71 03/11/25 10:38 84 100 03/11/25 10:33 99 H 100 03/11/25 10:32 93 H 135/75 03/11/25 10:31 104 H 91 03/11/25 10:30 18 03/11/25 10:30 18 03/11/25 10:28 90 100 03/11/25 10:26 82 132/77 03/11/25 10:24 97 H 139/78 03/11/25 10:23 95 H 100 03/11/25 10:22 95 H 135/76 03/11/25 10:20 100 H 131/75 03/11/25 10:18 100 03/11/25 10:18 94 H 03/11/25 10:18 93 H 130/74 03/11/25 10:16 100 H 125/74 03/11/25 10:14 103 H 121/74 03/11/25 10:13 95 H 100 03/11/25 10:12 102 H 129/76 03/11/25 10:11 94 H 127/78 03/11/25 10:08 95 H 119/57 L 100 03/11/25 10:06 88 121/59 L 03/11/25 10:04 94 H 124/72 03/11/25 10:03 95 H 99 03/11/25 10:02 93 H 123/68 03/11/25 10:00 103 H 20 138/86 03/11/25 09:58 86 126/76 99 03/11/25 09:56 85 127/69 03/11/25 09:54 88 125/74 03/11/25 09:53 86 99 03/11/25 09:52 81 136/84 03/11/25 09:50 86 137/83 03/11/25 09:48 94 H 99 03/11/25 09:43 90 99 03/11/25 09:38 79 97 03/11/25 09:33 100 H 100 03/11/25 09:28 96 H 99
[2025-03-11] MEDS: CITRIC ACID/SODIUM CITRATE 15 ML UDC PO ONE (21:28)
[2025-03-11] MEDS: ACETAMINOPHEN 500 MG TAB PO PRN (21:28)
[2025-03-11] MEDS: AZITHROMYCIN 500 MG/255 ML BAG IV ONE (21:29)
[2025-03-11] MEDS ORDERED: ONDANSETRON INJ 2 MG/ML 2 ML VIAL ONE (21:38)
[2025-03-11] MEDS ORDERED: DEXAMETHASONE SOD INJ 4 MG/ML VIAL ONE (21:38)
[2025-03-11] MEDS ORDERED: MoRPHine SULFATE PF 1 MG/ML 10 ML AMP/VIAL ONE (21:38)
[2025-03-11] MEDS ORDERED: LIDOCAINE 2%/EPINEPHRINE 1:200,000 20 ML PF ONE (21:38)
[2025-03-11] MEDS ORDERED: OXYTOCIN 10 UNITS/ML VIAL ONE (21:38)
[2025-03-11] MEDS ORDERED: PHENYLEPHRINE HCL 25 MG/250 ML NSS IV ONE (21:46)
[2025-03-11 22:55] LABS: Base Excess Cord Arterial Bld -6.1 mEq/L (-9-1.8); CO2 Cord Arterial Blood 56 mmHg (39.1-73.5); HCO3 Cord Arterial Blood 22 mmol/L (19.7-28.5); PO2 Cord Arterial Blood 28 mmHg (4.1-31.7); pH Cord Arterial Blood 7.21 (7.1-7.38)
--- NOTE | 2025-03-11 23:56 | Operative Report ---
Post Operative Report Pre & Post Diagnosis Operation Date: 03/11/25 21:20 Pre-Op Diagnosis: 1.) Arrest of Dilation 2.) OP position 3.) Category II FHT tracing Post-Op Diagnosis: Same as pre op I identified the patient and participated in the time-out.: Yes Procedure Operation Date: 03/11/25 21:20 Actual Procedures p Primary section for the of a live male child at 2221. - Quoc Calzada MD Surgeon Quoc Calzada MD Doughnut Glazier DUSTY Rodriguez Quantitative Blood Loss (QBL) 619 Findings Consistent with Post-Op Diagnosis Baby was a viable male infant delivered at 22:21 PM in cephalic, direct occiput position facing up, Apgars 5,7,9 at 1, 5, 10 minutes respectively. 3290 grams. Maternal findings, normal uterus, fallopian tubes and ovaries. Specimens Placenta, cord Drains Mullen catheter drained 50 mL of dark urine Anesthesia Type Labor Epidural Complications none Indications patient is a 24-year-old G1, P0 at 37 weeks and 5 days of gestation who presen ts to labor and delivery in labor with regular contractions and asked for epidural for pain in the morning. After epidural she progressed to 4, 80, -2 station with a bulging bag artificial rupture of membranes were done and then she was continued with oxytocin per protocol. Despite maximum of Pitocin and regular contractions cervix has not changed over hours and had stayed direct occipitoposterior position. heart rate was between category 1 and category 2. After discussion decision was made with primary delivery patient understood the risks and benefits and signed informed consent. Description of Procedure Patient was taken to operating room where a spinal anesthesia was given without difficulty. She was placed in dorsal supine position with a leftward tilt. She was prepared and draped in usual sterile fashion. A financial skin incision was made and carried through to the underlying layer of fascia with the Bovie. Fascia was incised in the midline and incision was extended laterally with the help of Pacheco scissors. Then the upper aspect of the fascial incision was grasped with 2 Rehana clamps elevated the underlying rectus muscles were dissected off sharply with Pacheco scissors. Same thing was done on the lower incision. Then the muscles were in the midline, peritoneum was identified grasped with 2 pickups and entered sharply with Metzenbaum scissors. Peritoneal incision was extended superior and inferiorly with good visualization of the bladder. The bladder blade was inserted. Vesicouterine peritoneum was identified, grasped with pickups and entered sharply with Metzenbaum scissors, bladder flap was created digitally and bladder blade was reinserted. Uterus was incised in transverse fashion, incision was extended laterally, membranes were ruptured and clear fluid was obtained. Baby's head was Noted to be facing up towards incision, direct occiput posterior, delivered without difficulty, followed by shoulders and body with minimal traction without difficulty. Mouth and nose were suctioned there was dried on the field he was vigorously crying and moving. The cord was clamped times and cut at 30 seconds and then the infant was handed off to the pediatric team. Then the placenta was delivered manually as intact and complete. Uterus was externalized and cleared of all clots and debris's. Uterine incision was repaired with 0 Vicryl in a running locked fashion, second umbricating layer was placed with the same suture in running locked fashion. Excellent hemostasis achieved. Cul-de-sac and the pelvis was irrigated with warm normal saline and suctioned. Incision was checked of anesthetic again. Uterus was returned to the abdomen, parietal peritoneum was reapproximated with 3-0 Vicryl in a running fashion and the muscles were reapproximated in the same suture in a running fashion. All of the fascia and rectus muscles were hemostatic. Rectus fascia was reapproximated with 0 Vicryl starting from both columns meeting in the midline. Subcuticular fat tissue was brought together with 2-0 Vicryl in a running fashion, skin was closed with staple. The mom and baby tolerated procedure well. Sponge needle instrument count was correct x3. she was given 2 g of cefazolin before surgery. No complications happened, I was present during whole procedure. My clothing sales assistant was needed for retraction, hemostasis and aid during delivery of I attest to the content of the Intraoperative Record and any orders documented therein. Any exceptions are noted below.
[2025-03-12] MEDS ORDERED: MAGNESIUM HYDROXIDE SUSP 30 ML UDC PO PRN
[2025-03-12] MEDS ORDERED: BENZOCAINE 20% SPRY 85 APPLN/85 GM CAN EXT PRN
[2025-03-12] MEDS ORDERED: CALCIUM CARBONATE 500 MG CHEWABLE TAB PO PRN
[2025-03-12] MEDS ORDERED: SENNA 8.6 MG TAB PO PRN
[2025-03-12] MEDS ORDERED: HYDROCORTISONE ACETATE 25 MG SUPP PR PRN
--- NOTE | 2025-03-12 00:08 | Anesthesiology Progress Note ---
Date of Service March 12, 2025 Anesthesia Post Procedure Vital Signs Vital Signs: Temp Pulse Resp BP Pulse Ox 03/12/25 00:04 104 H 98 03/12/25 00:03 105 H 133/76 03/11/25 23:59 104 H 98 03/11/25 23:54 112 H 98 03/11/25 23:49 100 03/11/25 23:49 104 H 03/11/25 23:49 97 H 122/58 L 03/11/25 23:46 95 H 114/62 03/11/25 23:44 96 H 99 03/11/25 23:43 93 H 114/56 L 03/11/25 23:40 98 H 109/60 03/11/25 23:39 98 H 98 03/11/25 23:37 102 H 109/59 L 03/11/25 23:34 99 H 105/58 L 98 03/11/25 23:30 36.9 C 16 03/11/25 23:29 98 H 99 03/11/25 23:25 96 H 114/59 L 03/11/25 23:24 99 H 98 03/11/25 21:49 117 H 98 03/11/25 21:44 117 H 142/88 H 98 03/11/25 21:39 117 H 97 03/11/25 21:34 108 H 100 03/11/25 21:29 110 H 100 03/11/25 21:24 102 H 99 03/11/25 21:19 98 H 100 03/11/25 21:14 100 03/11/25 21:14 96 H 03/11/25 21:14 96 H 139/69 03/11/25 21:09 103 H 100 03/11/25 21:04 108 H 100 03/11/25 20:59 97 H 100 03/11/25 20:58 103 H 148/82 H 03/11/25 20:54 91 H 100 03/11/25 20:49 94 H 100 03/11/25 20:44 99 03/11/25 20:44 93 H 03/11/25 20:44 92 H 94 03/11/25 20:43 90 145/86 H 03/11/25 20:39 101 H 97 03/11/25 20:38 97 H 148/86 H 03/11/25 20:34 109 H 100 03/11/25 20:33 109 H 168/77 H 86 L 03/11/25 20:29 103 H 161/100 H 100 03/11/25 20:24 104 H 100 03/11/25 20:19 98 H 100 03/11/25 20:14 100 H 100 03/11/25 20:13 100 H 144/93 H 03/11/25 20:09 96 H 100 03/11/25 20:04 95 H 100 03/11/25 20:00 36.7 C 03/11/25 19:59 101 H 100 03/11/25 19:58 96 H 143/97 H 03/11/25 19:54 99 03/11/25 19:54 93 H 03/11/25 19:54 93 H 94 03/11/25 19:49 100 03/11/25 19:49 87 03/11/25 19:49 91 H 90 03/11/25 19:44 93 H 135/87 100 03/11/25 19:39 89 100 03/11/25 19:34 94 H 100 03/11/25 19:29 93 H 100 03/11/25 19:24 92 H 100 03/11/25 19:21 88 134/79 03/11/25 19:19 88 94 03/11/25 19:18 89 89 L 03/11/25 19:13 92 H 100 03/11/25 19:08 88 100 03/11/25 19:03 86 100 03/11/25 18:58 93 H 123/79 100 03/11/25 18:53 89 100 03/11/25 18:48 96 H 100 03/11/25 18:43 100 03/11/25 18:43 92 H 03/11/25 18:43 91 H 144/91 H 03/11/25 18:38 94 H 100 03/11/25 18:34 96 H 150/95 H 03/11/25 18:33 97 H 100 03/11/25 18:30 20 03/11/25 18:30 20 03/11/25 18:28 88 154/97 H 100 03/11/25 18:24 87 148/96 H 03/11/25 18:23 93 H 100 03/11/25 18:18 88 100 03/11/25 18:16 89 146/98 H 03/11/25 18:14 93 H 142/101 H 03/11/25 18:13 87 100 03/11/25 18:08 91 H 100 03/11/25 18:03 94 H 100 03/11/25 18:00 20 03/11/25 18:00 20 03/11/25 17:58 91 H 143/87 H 100 03/11/25 17:53 88 100 03/11/25 17:48 94 H 100 03/11/25 17:43 100 03/11/25 17:43 85 03/11/25 17:43 81 137/84 03/11/25 17:38 100 03/11/25 17:38 90 03/11/25 17:38 90 139/84 03/11/25 17:35 94 H 147/91 H 03/11/25 17:33 93 H 100 03/11/25 17:32 91 H 144/91 H 03/11/25 17:30 97 H 153/102 H 03/11/25 17:29 107 H 140/92 03/11/25 17:28 106 H 100 03/11/25 17:23 104 H 100 03/11/25 17:18 104 H 96 03/11/25 17:15 99 H 138/99 03/11/25 17:13 99 H 100 03/11/25 17:10 103 H 94 03/11/25 17:08 102 H 100 03/11/25 17:03 94 H 100 03/11/25 17:01 03/11/25 17:01 36.9 C 22 03/11/25 16:58 100 03/11/25 16:58 95 H 03/11/25 16:58 89 149/93 H 03/11/25 16:53 91 H 100 03/11/25 16:48 96 H 100 03/11/25 16:43 100 03/11/25 16:43 94 H 03/11/25 16:43 101 H 136/92 03/11/25 16:42 97 H 91 03/11/25 16:38 90 100 03/11/25 16:33 89 100 03/11/25 16:30 18 03/11/25 16:30 18 03/11/25 16:29 95 H 139/89 03/11/25 16:28 93 H 100 03/11/25 16:23 94 H 99 03/11/25 16:18 90 100 03/11/25 16:14 96 H 135/82 03/11/25 16:13 94 H 100 03/11/25 16:11 91 H 92 03/11/25 16:08 91 H 100 03/11/25 16:03 91 H 99 03/11/25 16:00 18 03/11/25 16:00 18 03/11/25 15:58 88 100 03/11/25 15:57 86 136/82 03/11/25 15:53 91 H 100 03/11/25 15:48 89 100 03/11/25 15:44 85 131/81 03/11/25 15:43 80 100 03/11/25 15:38 81 100 03/11/25 15:33 83 99 03/11/25 15:30 16 03/11/25 15:30 16 03/11/25 15:29 96 H 139/93 03/11/25 15:28 94 H 100 03/11/25 15:26 89 91 03/11/25 15:23 82 100 03/11/25 15:18 85 100 03/11/25 15:15 81 131/62 03/11/25 15:13 83 100 03/11/25 15:10 36.8 C 03/11/25 15:08 81 100 03/11/25 15:03 85 100 03/11/25 15:00 18 03/11/25 15:00 36.8 C 18 03/11/25 14:58 83 134/73 100 03/11/25 14:53 84 100 03/11/25 14:52 84 93 03/11/25 14:48 86 100 03/11/25 14:44 86 130/65 03/11/25 14:43 91 H 100 03/11/25 14:38 87 98 03/11/25 14:33 85 100 03/11/25 14:31 89 91 03/11/25 14:30 16 03/11/25 14:30 16 03/11/25 14:28 84 132/66 100 03/11/25 14:23 81 100 03/11/25 14:18 84 94 03/11/25 14:13 100 03/11/25 14:13 75 03/11/25 14:13 76 132/72 03/11/25 14:08 102 H 90 03/11/25 14:03 92 H 100 03/11/25 14:00 16 03/11/25 14:00 16 03/11/25 13:58 100 03/11/25 13:58 88 03/11/25 13:58 89 139/86 03/11/25 13:53 95 H 99 03/11/25 13:48 88 100 03/11/25 13:43 92 H 146/88 H 100 03/11/25 13:38 95 H 100 03/11/25 13:33 92 H 100 03/11/25 13:30 18 03/11/25 13:30 18 03/11/25 13:28 100 03/11/25 13:28 92 H 03/11/25 13:28 85 131/80 03/11/25 13:26 81 90 03/11/25 13:23 96 H 100 03/11/25 13:18 89 100 03/11/25 13:14 93 H 140/84 03/11/25 13:13 100 H 100 03/11/25 13:10 98 H 93 03/11/25 13:08 101 H 100 03/11/25 13:03 86 99 03/11/25 13:00 18 03/11/25 13:00 18 03/11/25 12:59 90 99/72 L 03/11/25 12:58 88 94 03/11/25 12:55 95 H 90 03/11/25 12:53 94 H 100 03/11/25 12:48 84 100 03/11/25 12:44 85 92 03/11/25 12:43 100 03/11/25 12:43 86 03/11/25 12:43 84 134/77 03/11/25 12:38 89 100 03/11/25 12:33 93 H 100 03/11/25 12:30 16 03/11/25 12:30 16 03/11/25 12:29 83 130/71 03/11/25 12:28 84 100 03/11/25 12:23 92 H 100 03/11/25 12:21 90 94 03/11/25 12:18 76 100 03/11/25 12:13 82 115/74 100 03/11/25 12:08 79 100 03/11/25 12:03 90 95 09/12/25 12:00 83 20 149/67 H 03/11/25 11:58 81 100 03/11/25 11:53 90 98 03/11/25 11:48 86 100 03/11/25 11:45 75 113/65 03/11/25 11:43 90 100 03/11/25 11:38 83 99 03/11/25 11:33 83 100 03/11/25 11:30 18 03/11/25 11:30 18 03/11/25 11:29 77 109/73 03/11/25 11:28 80 100 03/11/25 11:23 80 100 03/11/25 11:19 89 94 03/11/25 11:18 85 97 03/11/25 11:15 82 119/86 03/11/25 11:13 92 H 88 L 03/11/25 11:08 80 100 03/11/25 11:03 91 H 100 03/11/25 11:00 20 03/11/25 11:00 36.9 C 20 03/11/25 10:58 76 100 03/11/25 10:57 100 H 138/61 03/11/25 10:53 104 H 100 03/11/25 10:52 85 116/67 03/11/25 10:48 90 98 03/11/25 10:47 86 118/68 03/11/25 10:43 90 100 03/11/25 10:42 101 H 116/73 03/11/25 10:39 88 115/71 03/11/25 10:38 84 100 03/11/25 10:33 99 H 100 03/11/25 10:32 93 H 135/75 03/11/25 10:31 104 H 91 03/11/25 10:30 18 03/11/25 10:30 18 03/11/25 10:28 90 100 03/11/25 10:26 82 132/77 03/11/25 10:24 97 H 139/78 03/11/25 10:23 95 H 100 03/11/25 10:22 95 H 135/76 03/11/25 10:20 100 H 131/75 03/11/25 10:18 100 03/11/25 10:18 94 H 03/11/25 10:18 93 H 130/74 03/11/25 10:16 100 H 125/74 03/11/25 10:14 103 H 121/74 03/11/25 10:13 95 H 100 03/11/25 10:12 102 H 129/76 03/11/25 10:11 94 H 127/78 03/11/25 10:08 95 H 119/57 L 100 03/11/25 10:06 88 121/59 L 03/11/25 10:04 94 H 124/72 03/11/25 10:03 95 H 99 03/11/25 10:02 93 H 123/68 03/11/25 10:00 103 H 20 138/86 03/11/25 09:58 86 126/76 99 03/11/25 09:56 85 127/69 03/11/25 09:54 88 125/74 03/11/25 09:53 86 99 03/11/25 09:52 81 136/84 03/11/25 09:50 86 137/83 03/11/25 09:48 94 H 99 03/11/25 09:43 90 99 03/11/25 09:38 79 97 03/11/25 09:33 100 H 100 03/11/25 09:28 96 H 99 03/11/25 09:00 18 03/11/25 09:00 18 03/11/25 07:59 81 125/75 03/11/25 07:29 86 140/94 03/11/25 07:16 22 03/11/25 07:16 37.0 C 22 03/11/25 05:43 78 128/81 03/11/25 05:37 36.8 C Pain Intensity Bilateral Lower Back: Pain Intensity: 7 Transfer of Care Handoff Completed per policy Notes Mental Status: alert / awake / arousable and participated in evaluation Patient Amnestic to Procedure: Yes Nausea / Vomiting: adequately controlled Pain: adequately controlled Airway Patency, RR, SpO2: stable & adequate BP & HR: stable & adequate Hydration State: stable & adequate Neuraxial Anesthesia: was administered and sensory block is resolving Anesthetic Complications: no major complications apparent and Pt Satisfied with anesthetic care
[2025-03-12] MEDS: KETOROLAC 30 MG/ML VIAL IV PRN (00:16)
[2025-03-12] MEDS: LACTATED RINGER'S 1,000 ML IV SCH (01:04)
--- NOTE | 2025-03-12 01:06 | Anesthesia Procedure Note ---
Date of Service March 12, 2025 Anesthesia Post Epidural Note Vital Signs Vital Signs: Temp Pulse Resp BP Pulse Ox 36.9 C 96 H 16 131/83 98 03/11/25 23:30 03/12/25 01:04 03/11/25 23:30 03/12/25 01:01 03/12/25 00:59 Pain Intensity Bilateral Lower Back: Pain Intensity: 7 Notes Mental Status: alert / awake / arousable and participated in evaluation Nausea / Vomiting: adequately controlled Pain: adequately controlled Airway Patency, RR, SpO2: stable & adequate BP & HR: stable & adequate Hydration State: stable & adequate Neuraxial Anesthesia: was administered and sensory block resolved Anesthetic Complications: no major complications apparent and Pt Satisfied with anesthetic care Epidural: Removed without complications and With tip intact
[2025-03-12] MEDS: lamoTRIgine 100 MG TAB PO SCH (01:21)
[2025-03-12 01:24] LABS: Appearance Urine Clear (Clear); Bacteria Urine Automated None Seen (None Seen); Cast Urine Automated 0-2 /lpf (0-2); Epithelial Cell Urine Auto 0-2 /hpf (0-2); Glucose Urine UA Negative (Negative); RBC Urine Automated >20 /hpf (0-2)
[2025-03-12 01:32] LABS: Protein Creatinine Ratio Urine 1.2 (0-0.2); Total Protein Urine Random 32.9 mg/dl (0-11.9)
[2025-03-12] MEDS ORDERED: MoRPHine SULFATE 2 MG/ML CARP IV PRN (01:59)
[2025-03-12] MEDS ORDERED: LACTATED RINGER'S 500 ML IV PRN (01:59)
[2025-03-12] MEDS ORDERED: NALOXONE HCL 0.08 MG in SYRINGE 1.8 ML IV PRN (01:59)
[2025-03-12] MEDS ORDERED: NALOXONE HCL 0.4 MG/1 ML VIAL/CARP IV PRN (01:59)
[2025-03-12] MEDS ORDERED: ONDANSETRON INJ 2 MG/ML 2 ML VIAL IV PRN ×2 (01:59→20:00)
[2025-03-12] MEDS ORDERED: HYDROmorphone INJ 0.5 MG/0.5 ML SYR IV PRN ×2 (01:59→20:00)
[2025-03-12] MEDS ORDERED: diphenhydrAMINE 50 MG/ML VIAL IV PRN ×2 (01:59→20:00)
[2025-03-12] MEDS ORDERED: NALBUPHINE HCL INJ 10 MG/ML AMP IV PRN (01:59)
[2025-03-12] MEDS ORDERED: NALOXONE HCL 1 MG in SODIUM CHLORIDE 0.9% 1,000 ML IV PRN (01:59)
[2025-03-12] MEDS ORDERED: DC INTRASPINAL MORPHINE SCH (02:00)
[2025-03-12] MEDS ORDERED: NO NARCOTICS OR SEDATIVES SCH (02:00)
[2025-03-12] MEDS: AMITRIPTYLINE HCL 10 MG TAB PO SCH (02:24)
[2025-03-12] MEDS: KETOROLAC 30 MG/ML VIAL ONE (02:29)
[2025-03-12] MEDS: OXYTOCIN 20 UNITS/LR 1,002 ML IV SCH (02:33)
[2025-03-12] MEDS: SIMETHICONE 80 MG CHEW PO SCH (05:59)
[2025-03-12] MEDS: KETOROLAC 30 MG/ML VIAL IV SCH (05:59)
[2025-03-12] MEDS: ACETAMINOPHEN 325 MG TAB PO SCH (05:59)
[2025-03-12 06:56] LABS: Hematocrit (blood only) 27.9 % (37.0-47.0); Hemoglobin 9.8 g/dl (12.0-16.0); Mean Corpuscular Hemoglobin 32.1 pg (25.0-34.0); Mean Corpuscular Volume 91.5 fL (80.0-100.0); Platelet Count 168 K/uL (130-400); RDW Standard Deviation 47.5 fL (36.4-46.3); Red Blood Count 3.05 M/uL (4.20-5.40); White Blood Count 11.95 K/ul (4.8-10.8)
[2025-03-12 07:15] LABS: Immature Granulocytes # (auto) 0.05 K/uL (0.01-0.20); Immature Granulocytes % (auto) 0.4 %; Polychromasia 2+; Tear Drop Cells 1+
[2025-03-12] MEDS: SODIUM CHLORIDE 0.9% 1,000 ML IV SCH (07:24)
[2025-03-12] MEDS: MoRPHine SULFATE PF 1 MG/ML 10 ML AMP/VIAL EPI ONE (07:24)
[2025-03-12] MEDS ORDERED: Nursing to Pharmacy Communication SCH (07:45)
[2025-03-12] MEDS ORDERED: lamoTRIgine 100 MG TAB PO SCH (09:00)
[2025-03-12] MEDS: DOCUSATE SODIUM 100 MG CAP PO SCH (09:22)
[2025-03-12] MEDS: PRENATAL VITAMIN 1 TAB PO SCH (09:23)
[2025-03-12] MEDS: ESCITALOPRAM OXALATE 20 MG TAB PO SCH (09:23)
[2025-03-12] MEDS: FERROUS SULFATE 325 MG TAB PO SCH (09:23)
[2025-03-12] MEDS: NIFEdipine EXTENDED REL 30 MG TABCR PO SCH (09:27)
[2025-03-12] MEDS: IRON SUCROSE 200 MG in SODIUM CHLORIDE 0.9% 100 ML IV ONE (09:28)
[2025-03-12] MEDS: MAGNESIUM OXIDE 400 MG TAB PO SCH (09:37)
--- NOTE | 2025-03-12 10:22 | Obstetrical Progress Note ---
Date of Service March 12, 2025 Assessment & Plan (1) delivery delivered: Pt is s/p section day #1 Pt doing well No complaints Pain adequately controlled with medications Stable vital Stable H/H: 9.9/27.1 Tolerating PO food and Meds Ambulating w/o difficulty + BS, No BM Incision: Clean , dry and Intact Continue day #1 care Subjective Ambulation: ambulating normally Voiding: no voiding problems Passing Gas:: Yes Diet Tolerance:: clear liquids Lochia:: Small Feeding Type:: breast feeding Review of Systems All systems reviewed & are unremarkable except as noted in HPI & below Physical Exam Constitutional WD/WN, vitals as above well developed and well nourished Eyes PERRL, conjunctivae normal, anicteric sclerae ENMT external ear and nose normal, oropharynx normal Neck trachea midline, no thyromegaly Respiratory normal respiratory effort, lungs clear to auscultation Cardiovascular RRR, no murmur, no edema Chest (Breasts) normal inspection/palpation of breasts Gastrointestinal (Abdomen) normal bowel sounds, soft, nontender, no hepatosplenomegaly Musculoskeletal no cyanosis or clubbing, extremities motor strength 5/5 Skin no rashes, warm and dry + incision (Clean,dry and intact) Neurologic patellar DTR's 2+ bilat, sensation intact Psychiatric A+Ox3, euthymic affect Genitourinary normal external appearance Lymphatic no cervical or axillary lymphadenopathy Results & Data Vital Signs (Past 12 Hours) Vital Signs Temp Pulse Pulse Resp BP BP Pulse Ox 03/12/25 06:10 18 98 03/12/25 05:22 18 99 03/12/25 04:31 18 99 03/12/25 03:35 18 98 03/12/25 02:30 18 97 03/12/25 02:30 03/12/25 02:30 36.9 C 96 H 18 141/88 H 97 03/12/25 01:39 99 H 98 03/12/25 01:34 96 H 98 03/12/25 01:29 95 H 98 03/12/25 01:24 100 H 98 03/12/25 01:19 95 H 98 03/12/25 01:14 98 H 98 03/12/25 01:09 95 H 97 03/12/25 01:04 96 H 97 03/12/25 01:01 96 H 131/83 03/12/25 00:59 100 H 98 03/12/25 00:54 94 H 98 03/12/25 00:49 90 98 03/12/25 00:44 90 98 03/12/25 00:39 90 98 03/12/25 00:34 91 H 99 03/12/25 00:29 101 H 98 03/12/25 00:25 93 H 133/64 03/12/25 00:24 94 H 98 03/12/25 00:19 100 H 98 03/12/25 00:14 111 H 99 03/12/25 00:09 104 H 97 03/12/25 00:04 104 H 98 03/12/25 00:03 105 H 133/76 03/11/25 23:59 104 H 98 03/11/25 23:54 112 H 98 03/11/25 23:49 100 03/11/25 23:49 104 H 03/11/25 23:49 97 H 122/58 L 03/11/25 23:46 95 H 114/62 03/11/25 23:44 96 H 99 03/11/25 23:43 93 H 114/56 L 03/11/25 23:40 98 H 109/60 03/11/25 23:39 98 H 98 03/11/25 23:37 102 H 109/59 L 03/11/25 23:34 99 H 105/58 L 98 03/11/25 23:30 36.9 C 16 03/11/25 23:29 98 H 99 03/11/25 23:25 96 H 114/59 L 03/11/25 23:24 99 H 98 O2 Del Method 03/12/25 06:10 03/12/25 05:22 03/12/25 04:31 03/12/25 03:35 03/12/25 02:30 03/12/25 02:30 Room Air 03/12/25 02:30 Room Air 03/12/25 01:39 03/12/25 01:34 03/12/25 01:29 03/12/25 01:24 03/12/25 01:19 03/12/25 01:14 03/12/25 01:09 03/12/25 01:04 03/12/25 01:01 03/12/25 00:59 03/12/25 00:54 03/12/25 00:49 03/12/25 00:44 03/12/25 00:39 03/12/25 00:34 03/12/25 00:29 03/12/25 00:25 03/12/25 00:24 03/12/25 00:19 03/12/25 00:14 03/12/25 00:03/12/25 00:04 03/12/25 00:03 03/11/25 23:59 03/11/25 23:54 03/11/25 23:49 03/11/25 23:49 03/11/25 23:49 03/11/25 23:46 03/11/25 23:44 03/11/25 23:43 03/11/25 23:40 03/11/25 23:39 03/11/25 23:37 03/11/25 23:34 03/11/25 23:30 03/11/25 23:29 03/11/25 23:25 03/11/25 23:24
[2025-03-12] MEDS ORDERED: PROMETHAZINE 12.5 MG/50.5 ML BAG IV PRN (20:00)
[2025-03-12] MEDS ORDERED: diphenhydrAMINE Capsule 25 MG CAP PO PRN (20:00)
[2025-03-12] MEDS: IBUPROFEN 600 MG TAB PO SCH (23:50)
[2025-03-13] MEDS: MEASLES, MUMPS & RUBELLA VIRUS VACCINE (MMR) 0.5ML VIAL SQ ONE (06:20)
[2025-03-13] MEDS: DIPHTHER/TETAN/PERTUS Vaccine (Tdap, Adol/Adult) 0.5mL IM ONE (06:33)
--- NOTE | 2025-03-13 07:23 | Obstetrical Progress Note ---
Date of Service March 13, 2025 Assessment & Plan (1) delivery delivered: Pt is s/p section day #2 Pt doing well No complaints Pain adequately controlled with medications Stable vital Tolerating PO food and Meds Ambulating w/o difficulty + BS, No BM Incision: Clean , dry and Intact anticipate disch tomorrow Results & Data Vital Signs (Past 12 Hours) Vital Signs Temp Pulse Resp BP Pulse Ox O2 Del Method 03/12/25 23:48 36.5 C 106 H 20 126/84 99 Room Air 03/12/25 19:55 36.5 C 110 H 20 114/80 96 Room Air
[2025-03-14] MEDS: IBUPROFEN 600 MG TAB PO PRN (00:21)
[2025-03-14] MEDS: ACETAMINOPHEN 325 MG TAB PO PRN (06:04)
[2025-03-14 06:11] LABS: Hematocrit (blood only) 24.4 % (37.0-47.0); Hemoglobin 8.4 g/dl (12.0-16.0)
--- NOTE | 2025-03-14 10:03 | Obstetrical Progress Note ---
Date of Service March 14, 2025 Assessment & Plan (1) delivery delivered: discharged Subjective Ambulation: ambulating normally Voiding: no voiding problems Passing Gas:: Yes Diet Tolerance:: regular diet Feeding Type:: breast feeding Current Pain Level(1-10): 0 doing well. plans for d/c today. Physical Exam Constitutional WD/WN, vitals as above Gastrointestinal (Abdomen) Inspection/Auscultation: abdomen normal to inspection (abdomen soft and non- tender. incision c/d/i.) Musculoskeletal Extremities: extremities normal to inspection Skin no rashes, warm and dry Neurologic patellar DTR's 2+ bilat, sensation intact Psychiatric A+Ox3, euthymic affect Results & Data Vital Signs (Past 12 Hours) Vital Signs Temp Pulse Resp BP Pulse Ox O2 Del Method 03/14/25 00:20 36.7 C 97 H 18 121/83 98 Room Air Laboratory Results Laboratory Results - last 72 hr 03/11/25 03/11/25 03/11/25 08:58 12:58 14:15 WBC RBC Hgb Hct MCV MCH MCHC RDW Std Deviation RDW Coeff of Stephen Plt Count MPV Immature Gran % (Auto) Neut % (Auto) Lymph % (Auto) Lewis % (Auto) Eos % (Auto) Baso % (Auto) Neut # (Auto) Lymph # (Auto) Lewis # (Auto) Eos # (Auto) Baso # (Auto) Immature Gran # (Auto) Absolute Nucleated RBC Nucleated RBC % (auto) Polychromasia Tear Drop Cells Cord ABG pH Cord ABG pCO2 Cord ABG pO2 Cord ABG HCO3 Cord ABG Base Excess Cord ABG O2 Sat Cord VBG pH Cord VBG pCO2 Cord VBG pO2 Cord VBG HCO3 Cord VBG Base Excess Cord VBG O2 Sat Barometric Pressure Blood Gas Comments Sodium Potassium Chloride Carbon Dioxide Anion Gap BUN Creatinine Est Cr Clr Drug Dosing eGFR BUN/Creatinine Ratio Glucose POC Glucose 124 H 85 Calcium Total Bilirubin AST ALT Alkaline Phosphatase Total Protein Albumin Globulin Albumin/Globulin Ratio Urine Color Urine Appearance Urine pH Ur Specific [place] Urine Protein Urine Glucose (UA) Urine Ketones Urine Blood Urine Nitrite Urine Bilirubin Urine Urobilinogen Ur Leukocyte Esterase Urine WBC (Auto) Urine RBC (Auto) U Hyaline Cast (Auto) U Epithel Cells (Auto) Urine Bacteria (Auto) Urine Yeast Ur Random Creatinine U Random Total Protein Protein/Creatinin Ratio Urine Comment Treponema pallidum Ab Negative Blood Type AB Positive Antibody Screen NEGATIVE 03/11/25 03/11/25 03/11/25 17:01 19:07 19:19 WBC 12.66 H RBC 3.52 L Hgb 11.6 L Hct 32.7 L MCV 92.9 MCH 33.0 MCHC 35.5 RDW Std Deviation 48.0 H RDW Coeff of Stephen 14.6 H Plt Count 167 MPV 10.5 Immature Gran % (Auto) 0.6 Neut % (Auto) 85.9 Lymph % (Auto) 6.9 Lewis % (Auto) 6.4 Eos % (Auto) 0.0 Baso % (Auto) 0.2 Neut # (Auto) 10.89 H Lymph # (Auto) 0.87 L Lewis # (Auto) 0.81 H Eos # (Auto) 0.00 Baso # (Auto) 0.02 Immature Gran # (Auto) 0.07 Absolute Nucleated RBC 0.02 Nucleated RBC % (auto) 0.2 Polychromasia Tear Drop Cells Cord ABG pH Cord ABG pCO2 Cord ABG pO2 Cord ABG HCO3 Cord ABG Base Excess Cord ABG O2 Sat Cord VBG pH Cord VBG pCO2 Cord VBG pO2 Cord VBG HCO3 Cord VBG Base Excess Cord VBG O2 Sat Barometric Pressure Blood Gas Comments Sodium 136 Potassium 4.0 Chloride 105 Carbon Dioxide 20 L Anion Gap 11 BUN 14 Creatinine 0.94 Est Cr Clr Drug Dosing 86.2 eGFR 87.44 BUN/Creatinine Ratio 14.9 Glucose 74 POC Glucose 83 80 Calcium 8.5 L Total Bilirubin 0.4 AST 19 ALT 12 Alkaline Phosphatase 158 H Total Protein 6.4 Albumin 3.4 Globulin 3.0 Albumin/Globulin Ratio 1.1 Urine Color Urine Appearance Urine pH Ur Specific [place] Urine Protein Urine Glucose (UA) Urine Ketones Urine Blood Urine Nitrite Urine Bilirubin Urine Urobilinogen Ur Leukocyte Esterase Urine WBC (Auto) Urine RBC (Auto) U Hyaline Cast (Auto) U Epithel Cells (Auto) Urine Bacteria (Auto) Urine Yeast Ur Random Creatinine U Random Total Protein Protein/Creatinin Ratio Urine Comment Treponema pallidum Ab Blood Type Antibody Screen 03/11/25 03/11/25 03/11/25 21:39 22:21 22:21 WBC RBC Hgb Hct MCV MCH MCHC RDW Std Deviation RDW Coeff of Stephen Plt Count MPV Immature Gran % (Auto) Neut % (Auto) Lymph % (Auto) Lewis % (Auto) Eos % (Auto) Baso % (Auto) Neut # (Auto) Lymph # (Auto) Lewis # (Auto) Eos # (Auto) Baso # (Auto) Immature Gran # (Auto) Absolute Nucleated RBC Nucleated RBC % (auto) Polychromasia Tear Drop Cells Cord ABG pH 7.21 Cord ABG pCO2 56 Cord ABG pO2 28 Cord ABG HCO3 22 Cord ABG Base Excess -6.1 Cord ABG O2 Sat TNP Cord VBG pH Cancelled Cord VBG pCO2 Cancelled Cord VBG pO2 Cancelled Cord VBG HCO3 Cancelled Cord VBG Base Excess Cancelled Cord VBG O2 Sat Cancelled Barometric Pressure Cancelled Blood Gas Comments A Cancelled Sodium Potassium Chloride Carbon Dioxide Anion Gap BUN Creatinine Est Cr Clr Drug Dosing eGFR BUN/Creatinine Ratio Glucose POC Glucose 92 Calcium Total Bilirubin AST ALT Alkaline Phosphatase Total Protein Albumin Globulin Albumin/Globulin Ratio Urine Color Urine Appearance Urine pH Ur Specific [place] Urine Protein Urine Glucose (UA) Urine Ketones Urine Blood Urine Nitrite Urine Bilirubin Urine Urobilinogen Ur Leukocyte Esterase Urine WBC (Auto) Urine RBC (Auto) U Hyaline Cast (Auto) U Epithel Cells (Auto) Urine Bacteria (Auto) Urine Yeast Ur Random Creatinine U Random Total Protein Protein/Creatinin Ratio Urine Comment Treponema pallidum Ab Blood Type Antibody Screen 03/12/25 03/12/25 03/14/25 00:10 06:26 05:45 WBC 11.95 H RBC 3.05 L Hgb 9.8 L 8.4 L Hct 27.9 L 24.4 L MCV 91.5 MCH 32.1 MCHC 35.1 RDW Std Deviation 47.5 H RDW Coeff of Stephen 14.6 H Plt Count 168 MPV 10.2 Immature Gran % (Auto) 0.4 Neut % (Auto) 88.9 Lymph % (Auto) 5.6 Lewis % (Auto) 4.9 Eos % (Auto) 0.0 Baso % (Auto) 0.2 Neut # (Auto) 10.63 H Lymph # (Auto) 0.67 L Lewis # (Auto) 0.58 Eos # (Auto) 0.00 Baso # (Auto) 0.02 Immature Gran # (Auto) 0.05 Absolute Nucleated RBC 0.04 Nucleated RBC % (auto) 0.3 Polychromasia 2+ Tear Drop Cells 1+ Cord ABG pH Cord ABG pCO2 Cord ABG pO2 Cord ABG HCO3 Cord ABG Base Excess Cord ABG O2 Sat Cord VBG pH Cord VBG pCO2 Cord VBG pO2 Cord VBG HCO3 Cord VBG Base Excess Cord VBG O2 Sat Barometric Pressure Blood Gas Comments Sodium Potassium Chloride Carbon Dioxide Anion Gap BUN Creatinine Est Cr Clr Drug Dosing eGFR BUN/Creatinine Ratio Glucose POC Glucose Calcium Total Bilirubin AST ALT Alkaline Phosphatase Total Protein Albumin Globulin Albumin/Globulin Ratio Urine Color Red Urine Appearance Clear Urine pH 6.5 Ur Specific [place] 1.007 Urine Protein 1+ H Urine Glucose (UA) Negative Urine Ketones Negative Urine Blood 3+ H Urine Nitrite Negative Urine Bilirubin Negative Urine Urobilinogen Negative Ur Leukocyte Esterase 1+ H Urine WBC (Auto) 6-10 H Urine RBC (Auto) >20 H U Hyaline Cast (Auto) 0-2 U Epithel Cells (Auto) 0-2 Urine Bacteria (Auto) None Seen Urine Yeast Present A Ur Random Creatinine 28.4 U Random Total Protein 32.9 H Protein/Creatinin Ratio 1.2 H Urine Comment Treponema pallidum Ab Blood Type Antibody Screen
[2025-03-14 10:07] VITALS: BP 124/84; PULSE 103; RESP 20; TEMP 98.4; O2SAT 99
== END 2025-03-14 11:50 | disposition home or self-care (01) | DRG 787 ==
LOC: OPB 05:18 → 4S1 05:20 → 4E2 03-12 02:17